=== PATIENT | female | born 1950 | race Caucasian/White ===

== ENCOUNTER 2022-11-02 08:36 | Outpatient (CLI) | payer MEDICARE ==
[2022-11-02] MEDS ORDERED: Iopamidol-370 76% 500 ML MDV (1 ML CHARGE) ONE (08:38)
== END 2022-11-02 08:37 | disposition home or self-care (01) ==
LOC: BICCT 08:36
PROVIDERS: ATTEND Internal Medicine Hematology & Oncology
DX: C22.1 Intrahepatic bile duct carcinoma (principal); N28.9 Disorder of kidney and ureter, unspecified; Z98.890 Other specified postprocedural states
CPT/HCPCS: 36415; 71260; 74178; 80053; 86301; Q9967

== ENCOUNTER 2023-01-20 12:39 | Outpatient (CLI) | payer MEDICARE | END 2023-01-20 12:40 | disposition home or self-care (01) | LOC: BICMAMMO 12:39 | PROVIDERS: ATTEND Internal Medicine Endocrinology, Diabetes & Metabolism | DX: M81.0 Age-related osteoporosis without current pathological fracture (principal); M85.89 Other specified disorders of bone density and structure, multiple sites | CPT/HCPCS: 77080 ==

== ENCOUNTER 2023-04-16 10:40 | Outpatient (CLI) | payer MEDICARE ==
[2023-04-16] MEDS ORDERED: Iopamidol 370 76% 100 ML VIAL ONE (12:32)
== END 2023-04-16 10:41 | disposition home or self-care (01) ==
LOC: BICCT 10:40
PROVIDERS: ATTEND Internal Medicine Hematology & Oncology
DX: C22.1 Intrahepatic bile duct carcinoma (principal); R91.1 Solitary pulmonary nodule
CPT/HCPCS: 71260; 74178; 82565; Q9967

== ENCOUNTER 2023-09-24 08:47 | Outpatient (CLI) | payer MEDICARE | END 2023-09-24 08:48 | disposition home or self-care (01) | LOC: BICMAMMO 08:47 | PROVIDERS: ATTEND Family Medicine | DX: Z12.31 Encounter for screening mammogram for malignant neoplasm of breast (principal); Z85.89 Personal history of malignant neoplasm of other organs and systems; Z91.89 Other specified personal risk factors, not elsewhere classified | CPT/HCPCS: 77063; 77067 ==

== ENCOUNTER 2024-04-25 10:28 | Outpatient (CLI) | payer MEDICARE | END 2024-04-25 10:29 | disposition home or self-care (01) | LOC: BICCT 10:28 | PROVIDERS: ATTEND Internal Medicine Hematology & Oncology | DX: R91.1 Solitary pulmonary nodule (principal); J98.11 Atelectasis; C22.1 Intrahepatic bile duct carcinoma | CPT/HCPCS: 71250 ==

== ENCOUNTER 2024-12-12 13:00 | Outpatient (CLI) | payer MEDICARE | END 2024-12-12 13:01 | disposition home or self-care (01) | LOC: BICMAMMO 13:00 | PROVIDERS: ATTEND Family Medicine | DX: Z12.31 Encounter for screening mammogram for malignant neoplasm of breast (principal); Z85.89 Personal history of malignant neoplasm of other organs and systems; Z91.89 Other specified personal risk factors, not elsewhere classified | CPT/HCPCS: 77063; 77067 ==